=== PATIENT | female | born 1990 | race Caucasian/White ===

== ENCOUNTER 2023-07-17 07:53 | Inpatient (IN) | payer OTHER ==
[2023-07-17] MEDS ORDERED: Misoprostol 50 MCG (1/2 of 100 MCG) Tab VAG ONE (08:13)
[2023-07-17 08:22] LABS: BASOPHILS PERCENT AUTO 0.9 % (0.0-1.0); EOSINOPHILS PERCENT AUTO 1.6 % (1.0-3.0); HEMATOCRIT 26.1 % (37.0-47.0); HEMOGLOBIN 8.8 g/dL (12.0-16.0); LYMPHOCYTES PERCENT AUTO 23.1 % (20.5-50.1); MEAN CORPUSCULAR HEMOGLOBIN 26.3 pg (27.0-34.0); MEAN CORPUSCULAR HGB CONC 33.7 g/dL (33.0-35.0); MEAN CORPUSCULAR VOLUME 78.1 fL (80-100); MONOCYTES PERCENT AUTO 8.1 % (2-8); NEUTROPHILS PERCENT AUTO 66.3 % (42.2-75.2); PLATELET COUNT,PLT 289 10^3/uL (150-450); RED BLOOD CELL COUNT 3.34 10^6/uL (4.2-5.4); WHITE BLOOD CELL COUNT,WBC 6.9 10^3/uL (5.0-10.0)
[2023-07-17] MEDS ORDERED: Ondansetron 4 MG/2 ML SDV IVPUSH PRN (08:53)
[2023-07-17] MEDS ORDERED: Lidocaine 1% 30 ML SDV INJECT ONE (08:53)
[2023-07-17] MEDS ORDERED: fentaNYL 100 MCG/2 ML SDV IVPUSH PRN (08:53)
[2023-07-17] MEDS ORDERED: Lactated Ringers 1,000 ML IV ONE (08:53)
[2023-07-17] MEDS ORDERED: Tranexamic Acid 1,000 MG in Sodium Chloride 0.9% 100 ML IV PRN (08:53)
[2023-07-17] MEDS ORDERED: Misoprostol 400 MCG (4 X 100 MCG TAB) RECTAL PRN (08:53)
[2023-07-17] MEDS ORDERED: Sodium Chloride 0.9% 10 ML Syringe FLUSH PRN (08:53)
[2023-07-17] MEDS ORDERED: Methylergonovine 0.2 MG/1 ML Amp IM PRN (08:53)
[2023-07-17] MEDS ORDERED: Carboprost Tromethamine 250 MCG/1 ML Amp IM PRN (08:53)
[2023-07-17] MEDS ORDERED: Misoprostol 25 MCG (1/4 of 100 MCG) Tab VAG PRN (08:57)
[2023-07-17] MEDS ORDERED: Oxytocin/Normal Saline 30 UNIT/500 ML BAG IV SCH (09:00)
[2023-07-17] MEDS ORDERED: Lactated Ringers 1,000 ML IV SCH (09:00)
[2023-07-17] MEDS ORDERED: fentaNYL 100 MCG/2 ML SDV ONE (13:49)
[2023-07-17] MEDS ORDERED: Bupivacaine 0.25% 10 ML SDV ONE (13:50)
[2023-07-17] MEDS ORDERED: Bupivacaine 0.25% 10 ML SDV EPIDUR ONE (13:50)
[2023-07-17] MEDS ORDERED: fentaNYL 100 MCG/2 ML SDV EPIDUR ONE (13:50)
[2023-07-17] MEDS ORDERED: Phenylephrine HCl In 0.9% NaCl 1 MG/10 ML Syringe IVPUSH PRN (14:10)
[2023-07-17] MEDS ORDERED: ePHEDrine 50 MG/ML SDV IVPUSH PRN (14:10)
[2023-07-17] MEDS ORDERED: Ropivacaine 200 MG in Premix Bag 1 BAG EPIDUR SCH (14:15)
[2023-07-17] MEDS ORDERED: Simethicone 80 MG Tab.Chew PO PRN (22:52)
[2023-07-17] MEDS ORDERED: Benzocaine/Menthol 20%-0.5% Spray 78 GM Cannister TOP PRN (22:52)
[2023-07-17] MEDS ORDERED: Aluminum Hydroxide/Magnesium Hydroxide/Simethicone Susp 30 ML Cup PO PRN (22:52)
[2023-07-17] MEDS ORDERED: Acetaminophen 325 MG Tab PO PRN (22:52)
[2023-07-17] MEDS ORDERED: Oxytocin 10 Units/1 ML SDV IM PRN (22:52)
[2023-07-17] MEDS: Ibuprofen 800 MG Tab PO PRN (23:00)
[2023-07-18] MEDS: Acetaminophen 325 MG Tab PO PRN ×3 (04:37→21:10)
[2023-07-18] MEDS ORDERED: Witch Hazel Medicated Pads 100/Jar TOP ONE (08:48)
[2023-07-18] MEDS ORDERED: Witch Hazel Medicated Pads 100/Jar TOP PRN (08:52)
[2023-07-18] MEDS: Ibuprofen 800 MG Tab PO PRN ×2 (08:55→17:02)
[2023-07-18] MEDS: Prenatal Multivitamin with Calcium/Folic Acid/Iron Tab PO SCH (08:55)
[2023-07-18] MEDS: Docusate Sodium 100 MG Cap PO PRN (21:09)
[2023-07-19] MEDS: Ibuprofen 800 MG Tab PO PRN (01:47)
[2023-07-19] MEDS: Prenatal Multivitamin with Calcium/Folic Acid/Iron Tab PO SCH (08:55)
[2023-07-19] MEDS: Docusate Sodium 100 MG Cap PO PRN (08:55)
== END 2023-07-19 09:20 | disposition home or self-care (01) | DRG 807 ==
LOC: DL.OB 07:53 → OBSVTOIN 22:06 → DL.OB 22:06
PROVIDERS: ADMIT Family Medicine; ATTEND Family Medicine
DX: O99.02 Anemia complicating childbirth (principal); Z37.0 Single live birth; O99.284 Endocrine, nutritional and metabolic diseases complicating childbirth; E03.9 Hypothyroidism, unspecified; O66.0 Obstructed labor due to shoulder dystocia; Z3A.39 39 weeks gestation of pregnancy; Z90.89 Acquired absence of other organs; Z86.16 Personal history of COVID-19
CPT/HCPCS: 01967; 36415; 51702; 59025; 59409; 85025; A9270-GY; J2405; J2590; J2795; J3010; J3490; J7120